=== PATIENT | male | born 1980 | race Native Hawaiian/Other Pacific Islander ===

== ENCOUNTER 2024-09-15 06:49 | Emergency (ER) | payer OTHER ==
[~2024-09-15] VITALS: Ht 175.3 cm; Wt 70.0 kg
[2024-09-15 08:00] VITALS: BP 130/91
== END 2024-09-15 08:00 | disposition home or self-care (01) ==
LOC: ED 06:49
DX: S46.002A Unspecified injury of muscle(s) and tendon(s) of the rotator cuff of left shoulder, initial encounter (principal); X50.0XXA Overexertion from strenuous movement or load, initial encounter
CPT/HCPCS: 73030; 99283

== ENCOUNTER 2025-03-26 06:20 | Emergency (ER) | payer OTHER ==
[~2025-03-26] VITALS: Ht 175.3 cm; Wt 76.6 kg
[2025-03-26] MEDS ORDERED: predniSONE 20 MG TAB PO ONE (06:45)
[2025-03-26] MEDS ORDERED: FAMOTIDINE 20 MG TAB PO ONE (06:45)
[2025-03-26] MEDS ORDERED: EPIPEN 2-P0.3 MG/0.3 IM (06:47)
[2025-03-26] MEDS ORDERED: METHYLPREDNISOLO4 M1 PO (06:48)
[2025-03-26 07:17] VITALS: BP 105/77
== END 2025-03-26 07:17 | disposition home or self-care (01) ==
LOC: ED 06:20
DX: T63.441A Toxic effect of venom of bees, accidental (unintentional), initial encounter (principal); L53.0 Toxic erythema; X58.XXXA Exposure to other specified factors, initial encounter
CPT/HCPCS: 99282; J7512; Q0163